=== PATIENT | male | born 1965 | race Caucasian/White ===

== ENCOUNTER 2020-01-15 04:49 | Emergency (ER) | payer SELFPAY ==
[~2020-01-15] VITALS: Ht 175.3 cm; Wt 109.5 kg
[2020-01-15 04:49] VITALS: BP 125/77
[2020-01-15] MEDS ORDERED: BUSP5TA PO (04:59)
[2020-01-15] MEDS ORDERED: ABIL1TAB13 PO (04:59)
[2020-01-15] MEDS ORDERED: HALO20TA PO (04:59)
[2020-01-15] MEDS ORDERED: LEXA5TAB13 PO (04:59)
== END 2020-01-15 05:24 | disposition left against medical advice (07) ==
LOC: M ED 04:49
DX: Z53.21 Procedure and treatment not carried out due to patient leaving prior to being seen by health care provider (principal)